=== PATIENT | male | born 1985 | race Caucasian/White ===

== ENCOUNTER 2017-11-20 07:36 | Emergency (ER) | payer MEDICAID ==
[~2017-11-20] VITALS: Ht 188 cm; Wt 109.1 kg
[2017-11-20] MEDS ORDERED: CEPHALEXIN MONOHYDRATE 500 MG CAPSULE PO ONE (08:15)
[2017-11-20] MEDS ORDERED: HYDROGEN PEROXIDE 118 ML SOLUTION TP ONE (08:15)
[2017-11-20] MEDS ORDERED: BACITRACIN 0.9 GM PACKET OINTMENT TP ONE (08:15)
[2017-11-20] MEDS ORDERED: IBUPROFEN 600 MG TABLET PO ONE (08:15)
[2017-11-20 09:05] VITALS: BP 115/70
[2017-11-20 10:07] LABS: GLUCOSE,POINT OF CARE 82 MG/DL (70-110)
== END 2017-11-20 10:23 | disposition home or self-care (01) ==
LOC: EMS 07:38
DX: S90.31XA Contusion of right foot, initial encounter (principal); L03.115 Cellulitis of right lower limb; F12.90 Cannabis use, unspecified, uncomplicated; W20.8XXA Other cause of strike by thrown, projected or falling object, initial encounter; Y93.89 Activity, other specified; Y92.89 Other specified places as the place of occurrence of the external cause; Y99.8 Other external cause status
CPT/HCPCS: 99284